=== PATIENT | female | born 2000 | race African-American/Black ===

== ENCOUNTER 2021-06-28 20:29 | Emergency (ER) | payer BC ==
[~2021-06-28] VITALS: Ht 177.8 cm; Wt 77.1 kg
[~2021-06-28 20:29] MED LIST: LEVONORGESTREL1 EAC2 PO; NOHOMEMEDICATIONS
[2021-06-28 20:33] VITALS: BP 151/90
[2021-06-29 00:43] LABS: ABSOLUTE NEUTROPHILS 4.2 thou/uL (1.4-8.2); BASOPHILS 0.6 % (0.0-2.0); EOSINOPHILS 3.5 % (0.0-3.0); HEMOGLOBIN 13.1 gm/dL (12.0-15.0); LYMPHOCYTES 31.4 % (24.0-44.0); MCH 27.5 pg (26.0-34.0); MCHC 32.7 g/dL (28.0-37.0); MONOCYTES 8.1 % (1.0-8.0); PLATELET COUNT 320 thou/uL (150-400); POLYS 56.4 % (36.0-66.0); RBC 4.76 mil/uL (4.20-5.00); RDW 15.2 % (10.5-14.5); WBC 7.4 thou/uL (4.0-11.0)
[2021-06-29 00:45] LABS: CALCIUM 9.2 mg/dL (8.5-10.1); CREATININE 0.9 mg/dL (0.6-1.0); POTASSIUM 3.5 mmol/L (3.5-5.1)
[2021-06-29 00:55] LABS: ALBUMIN 3.9 g/dL (3.4-5.0); MAGNESIUM 2.1 mg/dL (1.8-2.4); TOTAL BILIRUBIN 0.2 mg/dL (0.2-1.0); TOTAL PROTEIN 7.9 g/dL (6.4-8.2)
[2021-06-29 02:03] LABS: URINE BILIRUBIN NEGATIVE (Negative); URINE BLOOD NEGATIVE (Negative); URINE CLARITY CLEAR; URINE COLOR YELLOW; URINE GLUCOSE-RANDOM* NEGATIVE (Negative); URINE KETONES NEGATIVE (Negative); URINE LEUKOCYTES-REFLEX NEGATIVE (Negative); URINE NITRITE-REFLEX NEGATIVE (Negative); URINE PROTEIN (DIPSTICK) NEGATIVE (Negative); URINE UROBILINOGEN 0.2 E.U./dl (0.2-1.0)
[2021-06-29 02:11] LABS: AMP/METHAMP Negative (Negative); BARBITURATES Negative (Negative); BENZODIAZEPINES Negative (Negative); COCAINE Negative (Negative); METHADONE Negative (Negative); OPIATES Negative (Negative); PCP Negative (Negative)
--- NOTE | 2021-06-29 13:02 | EKG ---
[place] [address] [facility] [employer] [place] [address] ELECTROCARDIOGRAM REPORT Name: ROULA FARMER [id number] Admission: 06/28/21 Attend Phys: Discharge: 06/29/21 Date of : 89 Report #: [id number] [facility] ED Test Date: 2021-06-28 Test Time: 20:41:35 Pat Name: ROULA FARMER Department: Room: Gender: F Software Security Architect: ejnny : 2000 Requested By: Kelin Hays Order Number: [id number] MD: Nhan Sutton Measurements Intervals Peck Rate: 87 P: 68 UT: 150 QRS: 64 QRSD: 80 T: 41 QT: 348 QTc: 419 Interpretive Statements Sinus rhythm Borderline Q waves in inferior leads Compared to ECG 09/21/2016 19:21:32 No significant changes Electronically Signed On 06-29-2021 13:01:51 CDT by Nhan Sutton [email or web address] <ELECTRONICALLY SIGNED> By: Nhan Sutton MD, [facility] 06/29/21 1301 40 Nhan Sutton MD, FACC /EPI
== END 2021-06-29 02:16 | disposition home or self-care (01) ==
LOC: ER 20:29
PROVIDERS: Emergency Medicine
DX: R00.2 Palpitations (principal); R55 Syncope and collapse; Z86.16 Personal history of COVID-19